=== PATIENT | female | born 2000 | race Hispanic/Latino ===

== ENCOUNTER 2018-01-12 21:11 | Emergency (ER) | payer MEDICAID, OTHER | END 2018-01-12 23:50 | disposition home or self-care (01) | LOC: EDH 21:11 | DX: H81.399 Other peripheral vertigo, unspecified ear (principal); J03.90 Acute tonsillitis, unspecified; J45.909 Unspecified asthma, uncomplicated; Z88.1 Allergy status to other antibiotic agents; Z79.899 Other long term (current) drug therapy | CPT/HCPCS: 99282 ==

== ENCOUNTER 2020-10-01 15:26 | Emergency (ER) | payer OTHER ==
[~2020-10-01] VITALS: Ht 160 cm; Wt 127.0 kg
[2020-10-01 15:28] VITALS: BP 150/96
[2020-10-01] MEDS ORDERED: MUPI22O TP (18:16)
[2020-10-01] MEDS ORDERED: SULF1TAB42 PO (18:16)
[2020-10-01 18:43] VITALS: BP 148/82
== END 2020-10-01 18:44 | disposition home or self-care (01) ==
LOC: EDH 15:26
DX: L01.00 Impetigo, unspecified (principal); Z88.1 Allergy status to other antibiotic agents